=== PATIENT | male | born 1945 | race Caucasian/White ===

== ENCOUNTER → 2016-07-21 | Outpatient (CLI) | payer OTHER ==
[~2016-07-21] MED LIST: ASPEC81; CLXUNK PO; GLC500 PO; HYDUNK PO; LISI40TA; LVTUNK PO; SITA100T3 PO; VERA240T20; ZFRODT4 SL; [UNRECOGNIZED DRUG - OTHER] PO; [UNRECOGNIZED DRUG - REMARK] PO
--- NOTE | 2016-07-21 11:45 | DIAGNOSTIC IMAGING REPORT ---
CHEST 2 VIEWS ROUTINE CLINICAL HISTORY: HYPERTENSION, DIABETES, BLEEDING FROM MOUTH, HX OF SMOKING COMPARISON STUDY: 05/20/2009 FINDINGS: The cardiac and mediastinal contours are normal. There is no evidence of focal pulmonary consolidation. There is no evidence of failure. No pleural effusions are visualized.[ There is minimal chronic interstitial thickening. IMPRESSION: No active disease in the chest. Electronically signed by: Sridhar Jonas M.D. 07/21/2016 11:43 AM Dictated Date/Time: 07/21/2016 11:42 AM
== END | disposition home or self-care (01) ==
LOC: C.RAD1850 11:28
PROVIDERS: ATTEND Nurse Practitioner Family
DX: G47.33 Obstructive sleep apnea (adult) (pediatric) (principal); K13.79 Other lesions of oral mucosa; I10 Essential (primary) hypertension; Z87.891 Personal history of nicotine dependence; E11.9 Type 2 diabetes mellitus without complications

== ENCOUNTER 2017-07-31 17:58 | Emergency (ER) | payer OTHER ==
[~2017-07-31] VITALS: Ht 177.8 cm; Wt 109.6 kg
[2017-07-31 18:03] VITALS: TEMP 36.7; Ht 177.8 cm; Wt 109.6 kg
--- NOTE | 2017-07-31 18:40 | EMERGENCY ROOM VISIT NOTE ---
History Report prepared by Brad: Zulma Sanz Under the Supervision of: Dr. Zach Ernst M.D. First contact with patient: 18:10 Chief Complaint: FALL Stated Complaint: FALL-HIT HEAD, BALANCE INSTABILITY,SLIGHT HEADACHE History of Present Illness The patient is a 72 year old male who presents to the Emergency Room with complaints of an episode of fall around 1430. The patient has been having a worsening balance problem over the past couple of months. He has been veering to the left intermittently while walking. Today he was getting the garbage can from the driveway when he started veering left and fell. He landed on his buttocks and scraped his arm. He hit his head on the driveway. He denies any previous head injury. He started having a headache around 1500 which has resolved. He has had worsening leg swelling over the past 2 months. He has been sleeping in a recliner because he wheezes when he lies flat. He has been using his inhaler more frequently. He has felt SOB with walking. He denies any fever, chills, urinary symptoms, chest pain, ear pain, or neck pain. He has been unable to go on the treadmill for a couple months because his legs give out. He has not seen his PCP recently for any of these symptoms. He has a history of diabetes and hypertension. He is not on any blood thinners. He notes that his vision has been worsening over the past 5 years. Source of History: patient Onset: 1430 Position: head Quality: other (fall) Timing: other (episodic) Associated Symptoms: + headache, + SOB, No fevers, No chills, No neck pain, No chest pain, No urinary symptoms Note: Pt reports balance problems, leg swelling. Review of Systems See HPI for pertinent positives & negatives. A total of 10 systems reviewed and were otherwise negative. Past Medical & Surgical Medical Problems: (1) Diabetes (2) Hypertension Old medical records were reviewed. Nurse's notes were reviewed and I agree with. Family History Diabetes mellitus FHx: cancer Hypertension Social History Smoking Status: Former Smoker Marital Status: Housing Status: lives with significant other Occupation Status: retired Current/Historical Medications Scheduled Citalopram (Celexa Unknown Dose), 1 TAB PO DAILY Hydrochlorothiazide (Hctz Unknown Dose), 1 TABLET PO DAILY Levothyroxine (Levothroid Unknown Dose), 1 TAB PO DAILY Lisinopril (Zestril), 1 TABLET DAILY Metformin HCL (Glucophage *), 1,000 MG PO BID Methyldopa (Aldomet Unknown Dose), 1 TAB PO DAILY Ondansetron (Zofran Odt *), 4 MG SL Q6HR PRN Sitagliptin Phosphate (Januvia), 100 MG PO DAILY [Actos ? Dose], 1 TABLET PO DAILY Miscellaneous Medications Aspirin Enteric Coated (Ecotrin Or Generic *) Verapamil Sust Rel (Calan Sr Ext Rel) Allergies Coded Allergies: Simvastatin (Unverified Allergy, Intermediate, CONSTIPATION, 07/10/11) Physical Exam Vital Signs Date Time Temp Pulse Resp B/P (MAP) Pulse Ox O2 Delivery O2 Flow Rate FiO2 07/31/17 20:28 91 07/31/17 20:14 97 169/88 97 146/80 97 153/77 07/31/17 19:37 90 17 132/77 96 Room Air 07/31/17 18:35 90 28 138/72 94 Room Air 07/31/17 18:03 36.7 91 20 121/66 97 Room Air Physical Exam General: Non-ill appearing older male in no acute distress. HEENT: Normal cephalic atraumatic. Pupils are equal round and reactive to light. Extraocular movements are intact. Oropharynx is pink with moist mucous membranes. No swelling of the mouth lips or tongue. Neck: Supple with a midline trachea. No meningeal signs or stiffness, no JVD or bruits. No Stridor. Chest: Clear to auscultation bilaterally. No wheezes or rhonchi. No increased work of breathing. Heart: regular rate and rhythm. Abdomen: Soft nontender, nondistended without rebound guarding or rigidity. Rectal: Normal tone, scant stool, guaiac negative. Extremities: Bilateral pitting edema to the lower extremities. No cyanosis or clubbing. No calf tenderness or assymetry Spine/Back. Non tender to palpation. No CVA tenderness Skin: Good turgor without rashes. Neurologic exam: Cranial nerves two through 12 are intact. Motor and sensation are intact and symmetrical throughout. Medical Decision & Procedures ER Provider Diagnostic Interpretation: X-ray results as stated below per interpretation by me and the radiologist. Radiology results as stated below per my review and radiologist interpretation: CHEST ONE VIEW PORTABLE HISTORY: 72 years-old Male CHEST PAIN acute atypical chest pain status post fall COMPARISON: Chest radiographs 07/21/2016 TECHNIQUE: Portable AP view of the chest FINDINGS: Cardiac silhouette is within the upper limits of normal in size. Atherosclerosis of the aorta. No pneumothorax. Linear subsegmental right basilar opacities suggest atelectasis. No pleural effusion or lobar airspace consolidation. No overt pulmonary edema. Degenerative changes are seen within the shoulders and spine. Calcific tendinosis involves the right rotator cuff at the humeral head. IMPRESSION: No acute process. The above report was generated using voice recognition software. It may contain grammatical, syntax or spelling errors. Electronically signed by: Esteban Orellana M.D. 07/31/2017 7:18 PM Dictated Date/Time: 07/31/2017 7:17 PM HEAD WITHOUT CONTRAST (CT) CLINICAL HISTORY: 72 years-old Male with frequnt falls to the left. Acute head injury with fall. TECHNIQUE: Multiple axial CT images of the head were obtained without contrast. A dose lowering technique was utilized adhering to the principles of ALARA. CT DOSE: 614.27 mGy.cm COMPARISON: None. FINDINGS: No acute intracranial hemorrhage, midline shift, intracranial mass, hydrocephalus, territorial ischemia or abnormal extra-axial collection. Mild to moderate brain atrophy. Moderate ill-defined areas of low-attenuation within the white matter of the cerebral hemispheres bilaterally suggests chronic microvascular ischemic changes. The calvarium is intact. The paranasal sinuses, mastoid air cells, and middle ear cavities are clear. IMPRESSION: No acute intracranial abnormality. The above report was generated using voice recognition software. It may contain grammatical, syntax or spelling errors. Electronically signed by: Esteban Orellana M.D. 07/31/2017 7:10 PM Dictated Date/Time: 07/31/2017 7:08 PM Laboratory Results 07/31/17 18:30 Red Blood Count 4.08, Mean Corpuscular Volume 71.1, Mean Corpuscular Hemoglobin 22.1, Mean Corpuscular Hemoglobin Concent 31.0, Mean Platelet Volume 9.4, Neutrophils (%) (Auto) 72.1, Lymphocytes (%) (Auto) 16.2, Monocytes (%) (Auto) 8.8, Eosinophils (%) (Auto) 2.3, Basophils (%) (Auto) 0.2, Neutrophils # (Auto) 10.05, Lymphocytes # (Auto) 2.25, Monocytes # (Auto) 1.22, Eosinophils # (Auto) 0.32, Basophils # (Auto) 0.03 07/31/17 18:30 Test 07/31/17 18:30 07/31/17 18:47 White Blood Count 13.93 K/uL (4.8-10.8) Red Blood Count 4.08 M/uL (4.7-6.1) Hemoglobin 9.0 g/dL (14.0-18.0) Hematocrit 29.0 % (42-52) Mean Corpuscular Volume 71.1 fL (80-100) Mean Corpuscular Hemoglobin 22.1 pg (25-34) Mean Corpuscular Hemoglobin Concent 31.0 g/dl (32-36) Platelet Count 353 K/uL (130-400) Mean Platelet Volume 9.4 fL (7.4-10.4) Neutrophils (%) (Auto) 72.1 % Lymphocytes (%) (Auto) 16.2 % Monocytes (%) (Auto) 8.8 % Eosinophils (%) (Auto) 2.3 % Basophils (%) (Auto) 0.2 % Neutrophils # (Auto) 10.05 K/uL (1.4-6.5) Lymphocytes # (Auto) 2.25 K/uL (1.2-3.4) Monocytes # (Auto) 1.22 K/uL (0.11-0.59) Eosinophils # (Auto) 0.32 K/uL (0-0.5) Basophils # (Auto) 0.03 K/uL (0-0.2) RDW Standard Deviation 48.1 fL (36.4-46.3) RDW Coefficient of Variation 18.4 % (11.5-14.5) Immature Granulocyte % (Auto) 0.4 % Immature Granulocyte # (Auto) 0.06 K/uL (0.00-0.02) Prothrombin Time 10.4 SECONDS (9.0-12.0) Prothromb Time International Ratio 1.0 (0.9-1.1) Activated Partial Thromboplast Time 28.3 SECONDS (21.0-31.0) Partial Thromboplastin Ratio 1.1 Urine Color YELLOW Urine Appearance CLEAR (CLEAR) Urine pH 6.0 (4.5-7.5) Urine Specific Gary 1.017 (1.000-1.030) Urine Protein TRACE (NEG) Urine Glucose (UA) TRACE (NEG) Urine Ketones NEG (NEG) Urine Occult Blood NEG (NEG) Urine Nitrite NEG (NEG) Urine Bilirubin NEG (NEG) Urine Urobilinogen NEG (NEG) Urine Leukocyte Esterase NEG (NEG) Urine WBC (Auto) 1-5 /hpf (0-5) Urine RBC (Auto) 0-4 /hpf (0-4) Urine Hyaline Casts (Auto) 1-5 /lpf (0-5) Urine Epithelial Cells (Auto) 10-20 /lpf (0-5) Urine Bacteria (Auto) NEG (NEG) Anion Gap 6.0 mmol/L (3-11) Est Creatinine Clear Calc Drug Dose 60.0 ml/min Estimated GFR () 59.4 Estimated GFR (Non- 51.3 BUN/Creatinine Ratio 14.0 (10-20) Calcium Level 8.5 mg/dl (8.5-10.1) Total Bilirubin 0.4 mg/dl (0.2-1) Direct Bilirubin 0.1 mg/dl (0-0.2) Aspartate Amino Transf (AST/SGOT) 16 U/L (15-37) Alanine Aminotransferase (ALT/SGPT) 36 U/L (12-78) Alkaline Phosphatase 84 U/L (45-117) Total Protein 7.5 gm/dl (6.4-8.2) Albumin 3.4 gm/dl (3.4-5.0) Lipase 182 U/L (73-393) Thyroid Stimulating Hormone (TSH) 0.552 uIu/ml (0.300-4.500) Bedside Troponin I < 0.030 ng/ml (0-0.045) Laboratory studies as stated above per my review. ECG Per My Interpretation Indication: SOB/dyspnea Rate (beats per minute): 104 Rhythm: sinus tachycardia Findings: nonspecific-ST abn, no ectopy, other (nonspecific T wave abnormality) Comparison ECG Date: no prior available ED Course 1812: Past medical records reviewed. The patient was evaluated in room C3, and a complete history and physical examination were performed. 1938: I reevaluated the patient. He is doing well. He is considering admission. 2007: I reevaluated the patient and performed a rectal exam. Orthostatic vitals signs are being obtained. 2026: Upon reevaluation, the patient is resting comfortably. I discussed the results and treatment plan with him. He verbalized agreement of the treatment plan. The patient was discharged home. Medical Decision Differentials include, but are not limited to; vertigo, intracranial process, CHF, arrhythmia, infection, electrolyte or metabolic abnormality. This patient comes in as described above. He was placed in room C3. He has been having symptoms where he feels like he is falling to the left he fell today and hit his head. Also on exam, he has significant peripheral edema and has some dyspnea on exertion and I am concerned that he could have a congestive heart failure component as well. Extensive workup was done. I ordered a CAT scan of his head as well as chest x-ray, EKG, and multiple blood tests including cardiac biomarkers. He was reassessed frequently. IV access was established. He remained stable he is not orthostatic. His blood work shows a hemoglobin of 9. The most recent one is 6 years ago and was in the 12 range. He denies seeing any blood or black colors in his stool and I did a rectal exam and had scant scant school but no blood seen. He has no findings on his chest to suggest pulmonary edema. CAT scan of his head was unremarkable. He does have peripheral edema which has been getting worse. he is on HCTZ however he does not know his dose. Additionally, he is on a calcium channel lela and that could be attributing to his peripheral edema as well. I offered admission to do for further cardiac workup which I do think he will need. He declines this. He has nothing to suggest acute coronary syndrome. His anemia could be causing some of his symptoms however he is not orthostatic and I do think he is getting close follow-up with his regular doctor for recheck. He adamantly does not want to stay I think it is reasonable to have close follow-up in the next day or so and return if: worsening of symptoms, chest pain, any new problems or concerns. The patient and his were happy with the plan and he was discharged to home. Head Trauma GCS Score: 15 Medication Reconcilliation Current Medication List: was personally reviewed by me Blood Pressure Screening Patient's blood pressure: Elevated blood pressure Blood pressure disposition: Referred to PCP Impression Primary Impression: Dizziness Additional Impressions: Mild concussion Anemia Peripheral edema Scribe Attestation The scribe's documentation has been prepared under my direction and personally reviewed by me in its entirety. I confirm that the note above accurately reflects all work, treatment, procedures, and medical decision making performed by me. Departure Information Dispostion Home / Self-Care Referrals Juan Licea M.D. (PCP) Forms HOME CARE DOCUMENTATION FORM, IMPORTANT VISIT INFORMATION Patient Instructions My [facility] Additional Instructions Rest. Be very careful getting up and down Monitor your stool for blood or black colors Make sure you follow-up with Dr. Licea or 1 of his partners in the next 1-2 days. They may want to change your medications or add a further diuretic. It could be that the verapamil is making your leg swollen as well. I am concerned that your hemoglobin is low at 9 and you may need further workup for that as well. Return to the ER if: Worsening of symptoms, chest pain, shortness of breath, blood in her stool, any new problems or concerns. Problem Qualifiers
[2017-07-31 19:01] LABS: PTT PATIENT 28.3 SECONDS (21.0-31.0)
[2017-07-31 19:10] LABS: ALBUMIN 3.4 gm/dl (3.4-5.0); CALCIUM 8.5 mg/dl (8.5-10.1); CREATININE 1.36 mg/dl (0.60-1.40); POTASSIUM 3.7 mmol/L (3.5-5.1)
[2017-07-31 19:12] LABS: BASO % 0.2 %; BASO ABS # 0.03 K/uL (0-0.2); EOS % 2.3 %; EOS ABS # 0.32 K/uL (0-0.5); IG# 0.06 K/uL (0.00-0.02); LYMPH % 16.2 %; LYMPH ABS # 2.25 K/uL (1.2-3.4); MEAN CELL VOLUME 71.1 fL (80-100); MEAN CORPUSCULAR HEMOGLOBIN 22.1 pg (25-34); MEAN PLATELET VOLUME 9.4 fL (7.4-10.4); MONO % 8.8 %; MONO ABS # 1.22 K/uL (0.11-0.59); NEUT % 72.1 %; NEUT ABS # 10.05 K/uL (1.4-6.5); PLATELET COUNT 353 K/uL (130-400); RED CELL DISTRIBUTION WIDTH CV 18.4 % (11.5-14.5); RED CELL DISTRIBUTION WIDTH SD 48.1 fL (36.4-46.3); WHITE BLOOD COUNT 13.93 K/uL (4.8-10.8)
--- NOTE | 2017-07-31 19:12 | DIAGNOSTIC IMAGING REPORT ---
HEAD WITHOUT CONTRAST (CT) CLINICAL HISTORY: 72 years-old Male with frequnt falls to the left. Acute head injury with fall. TECHNIQUE: Multiple axial CT images of the head were obtained without contrast. A dose lowering technique was utilized adhering to the principles of ALARA. CT DOSE: 614.27 mGy.cm COMPARISON: None. FINDINGS: No acute intracranial hemorrhage, midline shift, intracranial mass, hydrocephalus, territorial ischemia or abnormal extra-axial collection. Mild to moderate brain atrophy. Moderate ill-defined areas of low-attenuation within the white matter of the cerebral hemispheres bilaterally suggests chronic microvascular ischemic changes. The calvarium is intact. The paranasal sinuses, mastoid air cells, and middle ear cavities are clear. IMPRESSION: No acute intracranial abnormality. The above report was generated using voice recognition software. It may contain grammatical, syntax or spelling errors. Electronically signed by: Esteban Orellana M.D. 07/31/2017 7:10 PM Dictated Date/Time: 07/31/2017 7:08 PM
[2017-07-31 19:20] LABS: TOTAL PROTEIN 7.5 gm/dl (6.4-8.2)
--- NOTE | 2017-07-31 19:20 | DIAGNOSTIC IMAGING REPORT ---
CHEST ONE VIEW PORTABLE HISTORY: 72 years-old Male CHEST PAIN acute atypical chest pain status post fall COMPARISON: Chest radiographs 07/21/2016 TECHNIQUE: Portable AP view of the chest FINDINGS: Cardiac silhouette is within the upper limits of normal in size. Atherosclerosis of the aorta. No pneumothorax. Linear subsegmental right basilar opacities suggest atelectasis. No pleural effusion or lobar airspace consolidation. No overt pulmonary edema. Degenerative changes are seen within the shoulders and spine. Calcific tendinosis involves the right rotator cuff at the humeral head. IMPRESSION: No acute process. The above report was generated using voice recognition software. It may contain grammatical, syntax or spelling errors. Electronically signed by: Esteban Orellana M.D. 07/31/2017 7:18 PM Dictated Date/Time: 07/31/2017 7:17 PM
[2017-07-31 19:37] VITALS: O2SAT 96
[2017-07-31 20:14] VITALS: BP 153/77
[2017-07-31 20:28] VITALS: PULSE 91
== END 2017-07-31 20:40 | disposition home or self-care (01) ==
LOC: C.EDB 18:00 → C.EDC 20:40
DX: S06.0X0A Concussion without loss of consciousness, initial encounter (principal); W19.XXXA Unspecified fall, initial encounter; Y93.89 Activity, other specified; D64.9 Anemia, unspecified; R60.9 Edema, unspecified; E11.9 Type 2 diabetes mellitus without complications; I10 Essential (primary) hypertension; Z87.891 Personal history of nicotine dependence; Z79.84 Long term (current) use of oral hypoglycemic drugs; Z79.899 Other long term (current) drug therapy; Z88.8 Allergy status to other drugs, medicaments and biological substances; Z83.3 Family history of diabetes mellitus; Z80.9 Family history of malignant neoplasm, unspecified; Z82.49 Family history of ischemic heart disease and other diseases of the circulatory system